=== PATIENT | female | born 1985 | race Caucasian/White ===

== ENCOUNTER 2017-07-11 11:21 | Emergency (ER) | payer OTHER ==
[2017-07-11 11:27] VITALS: BMI 26.6
--- NOTE | 2017-07-11 12:32 | PDOC ---
Attending Attestation - Resident Resident Name: Richard Waters - ED Attending Attestation I have performed the following: I have examined & evaluated the patient, The case was reviewed & discussed with the resident, I agree w/resident's findings & plan, Exceptions are as noted - HPI HPI: 07/11/17 12:50 31yo F no PMH p/w chest pain for 2 months. CP became worse over 2 days, L sided , radiating to back, pleuritic, non-positional. Denies trauma. Reports that she has not been lifting No tx tried. No OCPs or immobilization. LMP 06/08. Recent cold 1 week ago. - Physicial Exam PE: 07/11/17 12:56 GENERAL: Awake, alert, and fully oriented, in no acute distress HEAD: No signs of trauma EYES: PERRLA, EOMI, sclera anicteric, conjunctiva clear ENT: Auricles normal inspection, hearing grossly normal, nares patent, oropharynx clear without exudates. Moist mucosa NECK: Normal ROM, supple, no lymphadenopathy, JVD, or masses LUNGS: Breath sounds equal, clear to auscultation bilaterally. No wheezes, and no crackles HEART: Regular rate and rhythm, normal S1 and S2, no murmurs, rubs or gallops. + L sided ttp at 2nd intercostal space at the L sternal border. ABDOMEN: Soft, nontender, normoactive bowel sounds. No guarding, no rebound. No masses EXTREMITIES: Normal range of motion, no edema. No clubbing or cyanosis. No cords, erythema, or tenderness NEUROLOGICAL: Normal speech, cranial nerves intact, negative pronator drift, 5/ 5 strength in all 4 extremities, normal sensation to light touch in all 4 extremities, normal cerebellar exam, normal gait, normal reflexes and tone SKIN: Warm, Dry, normal turgor, no rashes or lesions noted. - Medical Decision Making 07/11/17 16:20 31yo F with no PMH p/w reproducible LSCP. Vitals unremerkable. EKG non ischemic. Likely MSK pain given reproducible nature with no risk factors and pt' s avoidance of heavy lifiting. WIll check troponin for ACS (pain has been present for 2 days) although unlikely history, and pt with no risk factors. Pt meets no PERC criteria, thus unlikely PE. -labs -UPT -cxr -toradol -likely DC Heart Score/ECG Review #1 07/11/17 13:02 Twelve-lead EKG was performed and reviewed by me. Normal sinus rhythm, rate 67. Normal axis. Incomplete right bundle branch block. No ST elevations. Isolated T- wave inversion in lead 3.
[2017-07-11 13:39] LABS: BASOPHIL 1.1 % (0-2.0); EOSINOPHIL 2.2 % (0-4.5); MCH 26.9 pg (25.7-33.7); MCHC 33.4 g/dl (32.0-36.0); MEAN CELL VOLUME 80.5 fl (80-96); MEAN PLT VOLUME 9.5 fl (7.5-11.1); NEUTROPHILS 52.2 % (42.8-82.8); PLATELET COUNT 310 K/MM3 (134-434); RDW 13.6 % (11.6-15.6); WHITE BLOOD COUNT 11.4 K/mm3 (4.0-10.0)
[2017-07-11 14:04] LABS: ALBUMIN 3.9 g/dl (3.4-5.0); ANION GAP 6 (8-16); BILIRUBIN,TOTAL 0.4 mg/dL (0.2-1.0); CALCIUM 8.7 mg/dL (8.5-10.1); CO2 28 mmol/L (21-32); CREATININE 0.6 mg/dL (0.55-1.02); GLUCOSE,RANDOM 87 mg/dL (74-106); SGPT/ALT 31 U/L (12-78); TOT PROT 7.7 g/dl (6.4-8.2)
[2017-07-11 14:07] LABS: ALK PHOS 82 U/L (45-117); TROPONIN I < 0.02 ng/ml (0.00-0.05)
[2017-07-11] MEDS ORDERED: KETOROLAC TROMETHAMINE 15 MG/ML VIAL IVPUSH ONE (14:29)
[2017-07-11] MEDS ORDERED: KETOROLAC TROMETHAMINE 15 MG/ML VIAL ONE (14:33)
[2017-07-11 14:47] LABS: CPK 199 IU/L (26-192); SGOT/AST 35 U/L (15-37)
--- NOTE | 2017-07-11 15:09 | PDOC ---
History of Present Illness - General Chief Complaint: Chest Pain Stated Complaint: CHEST PAIN Time Seen by Provider: 07/11/17 11:37 History Source: Patient Exam Limitations: No Limitations - History of Present Illness Initial Comments: 07/11/17 15:02 The patient is a 31F with no PMH who presents to the ED who presents to the ED with CP. The patient states that she's had 2 months of intermittent L sided chest pain which she describes as sharp and radiating to her back. Over the past 2 days, the pain has worsened and become constant, and is worse with deep breaths. She has not taken any medication for this pain. This has never happened before. She denies any long trips and using oral contraceptives. Soc: does not smoke, drink, or use recreational drugs LMP: Jun 08 Past History - Past Medical History Allergies/Adverse Reactions: Allergies Allergy/AdvReac Type Severity Reaction Status Date / Time No Known Allergies Allergy Verified 07/11/17 11:25 Home Medications: Ambulatory Orders NK [No Known Home Medication] 07/11/17 Other medical history: DENIES. - Surgical History Abdominal Surgery: Yes - Suicide/Smoking/Psychosocial Hx Smoking History: Never smoked Hx Alcohol Use: No Drug/Substance Use Hx: No Substance Use Type: None Review of Systems - Review of Systems Able to Perform ROS?: Yes Is the patient limited [place]ian proficient: No Constitutional: No: Chills, Fever HEENTM: No: Eye Pain, Nose Pain, Throat Pain Respiratory: Yes: Cough, Other (Recent URI) Cardiac (ROS): Yes: Chest Pain. No: Palpitations, Chest Tightness ABD/GI: No: Constipated, Nausea, Vomiting, Indigestion : No: Burning, Dysuria Musculoskeletal: No: Back Pain, Neck Pain Integumentary: No: Lesions, Lumps, Rash Neurological: No: Headache, Numbness, Tingling, Weakness *Physical Exam - Vital Signs Last Vital Signs Temp Pulse Resp BP Pulse Ox 98 F 71 18 110/75 99 07/11/17 11:25 07/11/17 11:25 07/11/17 11:25 07/11/17 11:25 07/11/17 11:25 - Physical Exam General Appearance: Yes: Nourished, Appropriately Dressed. No: Apparent Distress HEENT: positive: Normal Voice, Hearing Grossly Normal Respiratory/Chest: positive: Chest Tender, Lungs Clear, Normal Breath Sounds. negative: Respiratory Distress, Labored Respiration Cardiovascular: positive: Regular Rhythm, Regular Rate, S1, S2. negative: Diastolic Murmur, Systolic Murmur Gastrointestinal/Abdominal: positive: Flat, Soft. negative: Tender, Rebound, Tenderness Musculoskeletal: negative: CVA Tenderness, CVA Tenderness (R), CVA Tenderness (L ) Extremity: positive: Normal Inspection, Normal Range of Motion. negative: Coldness, Cyanosis, Calf Tenderness, Erythema Integumentary: positive: Dry, Warm. negative: Clammy, Diaphoresis Neurologic: positive: Fully Oriented, Alert, Normal Mood/Affect, Motor Strength 5/5 Heart Score/ECG Review - History History: Slightly suspicious - Electrocardiogram EKG: Normal - Age Age: </= 45 - Risk Factors Based on the list above the patient has:: No risk factors known - Troponin Troponin: </= normal limit - Score Heart Score - Total: 0 - ECG Impressions Comment:: 07/11/17 15:10 Rate 67 WI 130 QTc 407 Incomplete RBBB No old EKG for comparison ED Treatment Course - LABORATORY CBC & Chemistry Diagram: 07/11/17 13:30 07/11/17 13:30 - ADDITIONAL ORDERS Additional order review: Laboratory Results 07/11/17 07/11/17 13:30 13:29 Sodium 138 Potassium 5.0 Chloride 104 Carbon Dioxide 28 Anion Gap 6 L BUN 12 Creatinine 0.6 Creat Clearance w eGFR > 60 Random Glucose 87 Calcium 8.7 Total Bilirubin 0.4 AST 35 ALT 31 Alkaline Phosphatase 82 Creatine Kinase 199 H Troponin I < 0.02 Total Protein 7.7 Albumin 3.9 Serum , Qual Negative 07/11/17 13:30 RBC 5.23 H MCV 80.5 MCHC 33.4 RDW 13.6 MPV 9.5 Neutrophils % 52.2 Lymphocytes % 35.9 Monocytes % 8.6 Eosinophils % 2.2 Basophils % 1.1 - RADIOLOGY Radiology Studies Ordered: Category Date Time Status CHEST PA & LAT [RAD] Stat Radiology 07/11/17 11:56 Taken - Medications Given in the ED: ED Medications Discontinued Medications Generic Name Dose Route Start Last Admin Trade Name Freq PRN Reason Stop Dose Admin Ketorolac Tromethamine 15 mg 07/11/17 14:29 07/11/17 14:36 Toradol Injection - IVPUSH 07/11/17 14:30 15 mg ONCE ONE Administration Medical Decision Making - Medical Decision Making 07/11/17 15:11 The patient is 31F with no PMH presents with reproducible CP. Labs and vitals stable. Toradol given. Patient feels better. Knows to f/u with PCP for cardiology follow up. Will d/c patient. *DC/Admit/Observation/Transfer Diagnosis at time of Disposition: Costochondral pain - Discharge Dispostion Disposition: HOME Condition at time of disposition: Improved Admit: No - Patient Instructions Printed Discharge Instructions: DI for Atypical Chest Pain, DI for Chest Pain Additional Instructions: Please return to the ER if symptoms progress, worsen, or new symptoms arise. Please follow up with your primary care doctor in a week for cardiology referral. Please take motrin as needed for pain. Print Language: BENINESE
[2017-07-11 15:42] VITALS: BP 124/76; PULSE 82; TEMP 98.7
--- NOTE | 2017-07-12 11:46 | EKG ---
Test Reason : Blood Pressure : / mmHG Vent. Rate : 067 BPM Atrial Rate : 067 BPM P-R Int : 130 ms QRS Dur : 110 ms QT Int : 386 ms P-R-T Axes : 047 026 019 degrees QTc Int : 407 ms NORMAL SINUS RHYTHM INCOMPLETE RIGHT BUNDLE BRANCH BLOCK BORDERLINE ECG NO PREVIOUS ECGS AVAILABLE Confirmed by CHEPE CONCEPCION, LILLY ([id number]) on 07/12/2017 11:45:57 AM Referred By: Confirmed By:LILLY MO MD
== END 2017-07-11 15:42 | disposition home or self-care (01) ==
LOC: JER 11:21 → SUPCPDRO 11:21 → JER 15:42
PROC: 3E0333Z Introduction of Anti-inflammatory into Peripheral Vein, Percutaneous Approach (ICD-10-PCS; principal; 2017-07-11)
DX: M94.0 Chondrocostal junction syndrome [Tietze] (principal)
CPT/HCPCS: 36415; 71020-TC; 80053; 82550; 82553; 84484; 84703; 85025; 93005; 93010; 96374; 99283-25

== ENCOUNTER 2018-11-09 18:00 | Emergency (ER) | payer OTHER ==
--- NOTE | 2018-11-09 18:11 | PDOC ---
Rapid Medical Evaluation Time Seen by Provider: 11/09/18 18:10 Medical Evaluation: Allergies Allergy/AdvReac Type Severity Reaction Status Date / Time No Known Allergies Allergy Verified 07/11/17 11:25 11/09/18 18:10 I performed a brief in-person evaluation. Chief complaint: Chest pain, cough, fever Pertinent physical exam findings: +Rhinorrhea, clear lungs. I have ordered the following: None Patient will proceed to the ED for further evaluation. Discharge Disposition - Diagnosis Flu-like symptoms - Referrals - Patient Instructions - Post Discharge Activity
[2018-11-09 18:31] VITALS: BP 121/64; PULSE 98; TEMP 98.4; BMI 27.4
[2018-11-09] MEDS ORDERED: IBUPROFEN 600 MG TABLET (FP) PO ONE ×2 (18:48→18:54)
[2018-11-09] MEDS ORDERED: LORATADINE 10 MG TABLET PO ONE (18:48)
[2018-11-09] MEDS ORDERED: LORATADINE 10 MG TABLET ONE (18:54)
--- NOTE | 2018-11-09 18:55 | PDOC ---
History of Present Illness - General Chief Complaint: Pain Stated Complaint: CHEST PAIN Time Seen by Provider: 11/09/18 18:10 History Source: Patient Exam Limitations: No Limitations - History of Present Illness Initial Comments: 11/09/18 18:50 33 year old female with no significant medical or surgical history that presents with right sided headache and chest discomfort x 2 days. As per patient she is having sneezing and forceful coughing that causes her chest to hurt. States feeling a little short of breath also. Timing/Duration: reports: other (2 days') Severity: reports: moderate Possible Cause: Yes: no prior episodes Associated Symptoms: reports: cough, earache, fever/chills, headache Aspirin Received prior to arrival: Yes: no aspirin today ASA Contraindications(Core Measure): No: Allergy Beta Cole Contraindications(Core Measure): Yes: Not Prescribed Beta Cole Given by EMS(Core Measure): No Beta Cole Taken at Home(Core Measure): No Past History - Travel Traveled outside of the country in the last 30 days: No Close contact w/someone who was outside of country & ill: No - Past Medical History Allergies/Adverse Reactions: Allergies Allergy/AdvReac Type Severity Reaction Status Date / Time No Known Allergies Allergy Verified 11/09/18 18:10 Home Medications: Ambulatory Orders Ibuprofen 600 mg PO TID #20 tablet 11/09/18 Loratadine 10 mg PO DAILY #10 tab.rapdis 11/09/18 - Surgical History Abdominal Surgery: Yes - Suicide/Smoking/Psychosocial Hx Smoking History: Never smoked Hx Alcohol Use: No Drug/Substance Use Hx: No Substance Use Type: None Respiratory Specific PMHX - Complaint Specific PMHX Angina: No Bronchitis: No Pneumonia: No Pulmonary Embolus: No TB (Tuberculosis): No Review of Systems - Review of Systems Able to Perform ROS?: Yes Is the patient limited [place] proficient: No Constitutional: No: Chills, Fever, Malaise HEENTM: Yes: Nose Congestion. No: Throat Pain, Mouth Pain, Difficulty Swallowing Respiratory: Yes: Cough. No: Orthopnea, Shortness of Breath Cardiac (ROS): Yes: Chest Tightness. No: Edema, Lightheadedness, Palpitations ABD/GI: No: Abdominal Distended, Blood Streaked Bowels, Poor Appetite, Poor Fluid Intake, Indigestion : No: Hematuria, Incontinence Integumentary: No: Dryness, Erythema Neurological: Yes: Headache. No: Numbness, Paresthesia Psychiatric: No: Depression Endocrine: No: Intolerance to Heat *Physical Exam - Vital Signs Last Vital Signs Temp Pulse Resp BP Pulse Ox 98.4 F 98 H 18 121/64 99 11/09/18 18:29 11/09/18 18:29 11/09/18 18:29 11/09/18 18:29 11/09/18 18:29 - Physical Exam General Appearance: Yes: Nourished, Appropriately Dressed. No: Apparent Distress HEENT: positive: GRETEL, Pharynx Normal, Pharyngeal Erythema, Nasal Congestion. negative: Tonsillar Exudate, Rhinorrhea Neck: positive: Supple. negative: Lymphadenopathy (R), Lymphadenopathy (L) Respiratory/Chest: positive: Lungs Clear. 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 NML intact, Fully Oriented Moderate Sedation - Procedure Monitoring Vital Signs: Procedure Monitoring Vital Signs Temperature 98.4 F 11/09/18 18:29 Pulse Rate 98 H 11/09/18 18:29 Respiratory Rate 18 11/09/18 18:29 Blood Pressure 121/64 11/09/18 18:29 O2 Sat by Pulse Oximetry (%) 99 11/09/18 18:29 ED Treatment Course - ADDITIONAL ORDERS Additional order review: Laboratory Results 11/09/18 18:00 Urine HCG, Qual Negative - RADIOLOGY Radiology Studies Ordered: Category Date Time Status CHEST - PA [RAD] Stat Radiology 11/09/18 18:48 Ordered Medical Decision Making - Medical Decision Making 11/09/18 18:57 33 year old female with no significant medical or surgical history that presents with right sided headache and chest discomfort x 2 days Plan chest pain analgesia loratadine 11/09/18 19:17 wet read chest xray : negative *DC/Admit/Observation/Transfer Diagnosis at time of Disposition: Flu-like symptoms - Discharge Dispostion Disposition: HOME Condition at time of disposition: Good Decision to Admit order: No - Prescriptions Prescriptions: Ibuprofen 600 mg PO TID #20 tablet Loratadine 10 mg PO DAILY #10 tab.rapdis - Referrals Schedule a call back: final chest xray - Patient Instructions Printed Discharge Instructions: Common Cold Additional Instructions: Drink plenty fluids and rest May take ibuprofen and acetaminophen for headache and bodyaches Return to ed for worsening symptoms Call primary physician for appointment - Post Discharge Activity Forms/Work/School Notes: Back to Work
== END 2018-11-09 19:29 | disposition home or self-care (01) ==
LOC: JERFT 18:00
DX: J11.1 Influenza due to unidentified influenza virus with other respiratory manifestations (principal)
CPT/HCPCS: 71045-TC-FY; 84703; 99281-25

== ENCOUNTER 2018-11-11 13:29 | Emergency (ER) | payer OTHER ==
[2018-11-11 14:15] VITALS: BP 103/68; PULSE 98; TEMP 98.2; BMI 27.4
--- NOTE | 2018-11-11 15:12 | PDOC ---
History of Present Illness - General Chief Complaint: Cold Symptoms Stated Complaint: HEADACHES / CONGESTION Time Seen by Provider: 11/11/18 14:19 History Source: Patient Exam Limitations: No Limitations (headache with right facial pain) Past History - Travel Traveled outside of the country in the last 30 days: No Close contact w/someone who was outside of country & ill: No - Past Medical History Allergies/Adverse Reactions: Allergies Allergy/AdvReac Type Severity Reaction Status Date / Time No Known Allergies Allergy Verified 11/11/18 14:12 Home Medications: Ambulatory Orders Ibuprofen 600 mg PO TID #20 tablet 11/09/18 Loratadine 10 mg PO DAILY #10 tab.rapdis 11/09/18 Azithromycin [Zithromax] 250 mg PO DAILY 5 Days #6 tablet 11/11/18 Fluticasone Propionate [Flonase Allergy Relief] 9.9 ml NS ACDIN 7 Days #1 spray.susp 11/11/18 - Surgical History Abdominal Surgery: Yes - Suicide/Smoking/Psychosocial Hx Smoking History: Unknown if ever smoked Hx Alcohol Use: No Drug/Substance Use Hx: No Substance Use Type: None Review of Systems - Review of Systems Is the patient limited Venezuelan proficient: No Constitutional: No: Chills, Fever HEENTM: Yes: Nose Congestion. No: Blurred Vision, Recent change in vision, Double Vision Respiratory: No: Orthopnea, Shortness of Breath Cardiac (ROS): No: Chest Pain ABD/GI: No: Nausea, Vomiting Neurological: Yes: Headache. No: Numbness, Paresthesia, Seizure, Tingling, Tremors, Weakness, Unsteady Gait, Dizziness *Physical Exam - Vital Signs Last Vital Signs Temp Pulse Resp BP Pulse Ox 98.2 F 98 H 18 103/68 97 11/11/18 14:14 11/11/18 14:14 11/11/18 14:14 11/11/18 14:14 11/11/18 14:14 - Physical Exam General Appearance: Yes: Nourished HEENT: positive: TMs Normal, Rhinorrhea, Sinus Tenderness (right frontal and maxillary sinus tenderness, + buggy nasal turbinates) Respiratory/Chest: positive: Lungs Clear, Normal Breath Sounds Cardiovascular: positive: Regular Rhythm, Regular Rate, S1, S2 Extremity: positive: Normal Capillary Refill 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 Patient was seen in the emergency room 2 days ago was treated for upper respiratory infection she reports she's taken loratadine was still pain examination consistent with sinusitis Rx for abx nasal lavages nsaids for pain 11/11/18 18:52 *DC/Admit/Observation/Transfer Diagnosis at time of Disposition: Sinusitis Qualifiers: Sinusitis location: frontal Chronicity: acute Recurrence: not specified as recurrent Qualified Code(s): J01.10 - Acute frontal sinusitis, unspecified - Discharge Dispostion Disposition: HOME Condition at time of disposition: Stable Decision to Admit order: No - Prescriptions Prescriptions: Azithromycin [Zithromax] 250 mg PO DAILY 5 Days #6 tablet Fluticasone Propionate [Flonase Allergy Relief] 9.9 ml NS ACDIN 7 Days #1 spray.susp - Referrals Referrals: Lj Velazquez MD [Primary Care Provider] - - Patient Instructions Printed Discharge Instructions: Sinusitis Additional Instructions: I discussed the physical exam findings, ancillary test results and final diagnoses with the patient. I answered all of the patient's questions. The patient was satisfied with the care received and felt comfortable with the discharge plan and treatment plan. The patient will call their primary care physician within 24 hours to arrange follow-up and will return to the Emergency Department with any new, persistant or worsening symptoms. - Post Discharge Activity
== END 2018-11-11 15:45 | disposition home or self-care (01) ==
LOC: JERFT 13:29
DX: J01.10 Acute frontal sinusitis, unspecified (principal)
CPT/HCPCS: 99281-25

== ENCOUNTER 2019-02-17 14:45 | Emergency (ER) | payer OTHER | END 2019-02-17 18:24 | disposition home or self-care (01) | LOC: JER 14:45 ==

== ENCOUNTER 2019-07-17 09:39 | Emergency (ER) | payer OTHER ==
[2019-07-17 09:45] VITALS: BP 105/68; PULSE 84; TEMP 97.9; BMI 28.8
[2019-07-17] MEDS ORDERED: IBUPROFEN 600 MG TABLET (FP) PO ONE ×2 (10:04→10:07)
--- NOTE | 2019-07-17 10:17 | PDOC ---
History of Present Illness - General Chief Complaint: Back Pain Stated Complaint: SHARP PAIN IN BACK Time Seen by Provider: 07/17/19 09:54 History Source: Patient Exam Limitations: No Limitations Past History - Past Medical History Allergies/Adverse Reactions: Allergies Allergy/AdvReac Type Severity Reaction Status Date / Time No Known Allergies Allergy Verified 07/17/19 09:45 Home Medications: Ambulatory Orders Ciprofloxacin [Cipro -] 500 mg PO Q12H 5 Days #10 tablet 02/17/19 metroNIDAZOLE [Flagyl -] 500 mg PO DAILY 7 Days #14 tablet 02/17/19 Ciprofloxacin [Cipro (Restricted To Id)] 500 mg PO Q12H #10 tablet 02/21/19 metroNIDAZOLE [Flagyl -] 500 mg PO BID #14 tablet 02/21/19 Cyclobenzaprine HCl [Flexeril 10 mg] 10 mg PO TID PRN #30 tablet 07/17/19 COPD: No - Surgical History Abdominal Surgery: Yes - Psycho Social/Smoking Cessation Hx Smoking History: Never smoked Information on smoking cessation initiated: No Hx Alcohol Use: No Drug/Substance Use Hx: No Substance Use Type: None *Physical Exam - Vital Signs Last Vital Signs Temp Pulse Resp BP Pulse Ox 97.9 F 84 17 105/68 100 07/17/19 09:43 07/17/19 09:43 07/17/19 09:43 07/17/19 09:43 07/17/19 09:43 - Physical Exam General Appearance: No: Apparent Distress Respiratory/Chest: positive: Lungs Clear, Normal Breath Sounds. negative: Respiratory Distress Cardiovascular: positive: Regular Rhythm, Regular Rate, S1, S2. negative: Murmur Gastrointestinal/Abdominal: positive: Normal Bowel Sounds, Soft. negative: Tender, Distended, Guarding, Rebound Musculoskeletal: positive: Muscle Spasm (along L thoracic paraspinal muscles). negative: CVA Tenderness (R), CVA Tenderness (L), Vertebral Tenderness Extremity: positive: Normal Inspection, Normal Range of Motion Neurologic: positive: Alert, Normal Mood/Affect, Motor Strength 5/5 ED Treatment Course - Medications Given in the ED: ED Medications Discontinued Medications Generic Name Dose Route Start Last Admin Trade Name Freq PRN Reason Stop Dose Admin Ibuprofen 600 mg 07/17/19 10:04 07/17/19 10:09 Motrin - PO 07/17/19 10:05 600 mg ONCE ONE Administration Medical Decision Making - Medical Decision Making 33 y/o F with no sig pmh presents with L mid back pain worse with movement of body from today. Denies trauma, heavy lifting. Denies fever, neck pain, sob, cp , abd pain, n/v, shoulder pain, numbness/tingling/weakness of extremities, urinary symptoms. Back spasm based on exam No concern for PE, PNA, kidney stones or other anomaly Given motrin unable to take muscle relaxer as driving home 07/17/19 10:14 Discharge - Discharge Information Problems reviewed: Yes Clinical Impression/Diagnosis: Back spasm Condition: Stable Disposition: HOME - Admission No - Additional Discharge Information Prescriptions: Cyclobenzaprine HCl [Flexeril 10 mg] 10 mg PO TID PRN #30 tablet PRN Reason: Muscle Spasms Prescription Drug Monitoring Program (I-STOP) results: I-STOP not reviewed - Follow up/Referral - Patient Discharge Instructions Patient Printed Discharge Instructions: DI for Back Spasm Additional Instructions: Thank you for choosing [facility]. It was a pleasure taking care of you. You may take Motrin 600 mg every 6 hours by mouth as needed for mild to moderate pain. Take Motrin with food. Take Flexeril as needed for muscle spasms. This medication can also make you drowsy so please be cautious with driving or performing heavy physical work. Warm compresses and epsom salt baths may also help. Return to the Emergency Department if your symptoms worsen or persist, you have fever, shortness of breath, chest pain, severe abdominal pain, vomiting, dizziness, weakness of extremities, unable to walk, unable to control bowel or bladder movements or other concerning symptoms. - Post Discharge Activity
== END 2019-07-17 10:22 | disposition home or self-care (01) ==
LOC: JERFT 09:39
DX: R25.2 Cramp and spasm (principal)
CPT/HCPCS: 99281-25

== ENCOUNTER 2020-04-26 18:05 | Emergency (ER) | payer OTHER ==
--- NOTE | 2020-04-26 18:08 | PDOC ---
Rapid Medical Evaluation Chief Complaint: Pain Time Seen by Provider: 04/26/20 18:07 Medical Evaluation: Allergies Allergy/AdvReac Type Severity Reaction Status Date / Time No Known Allergies Allergy Verified 07/17/19 09:45 04/26/20 18:07 I have performed a brief in-person evaluation of this patient. CC: lower abdominal pain x today. 19wks gestation. LMP-12/04/19 PE: Gravid abdomen Orders: labs, urine, sono Patient will proceed to ED for further evaluation. 04/26/20 18:08 Discharge Disposition - Diagnosis Abdominal pain affecting - Referrals - Patient Instructions - Post Discharge Activity
[2020-04-26 18:10] VITALS: BP 120/77; PULSE 94; TEMP 98; BMI 31.8
[2020-04-26 19:13] LABS: BASO % 0.8 % (0-2.0); EOS % 2.4 % (0-4.5); HEMOGLOBIN 12.2 GM/dL (10.7-15.3); LYMPH % 25.4 % (8-40); MCH 28.2 pg (25.7-33.7); MCHC 33.8 g/dl (32.0-36.0); MEAN CELL VOLUME 83.3 fl (80-96); MEAN PLT VOLUME 10.1 fl (7.5-11.1); MONO % 5.2 % (3.8-10.2); NEUT % 66.2 % (42.8-82.8); PLATELET COUNT 256 K/MM3 (134-434); RBC 4.32 M/mm3 (3.60-5.2); RDW 12.7 % (11.6-15.6); WHITE BLOOD COUNT 16.2 K/mm3 (4.0-10.0)
[2020-04-26] MEDS ORDERED: ACETAMINOPHEN 500 MG TABLET (FP) ONE (19:14)
[2020-04-26] MEDS ORDERED: ACETAMINOPHEN 500 MG TABLET (FP) PO ONE (19:17)
--- NOTE | 2020-04-26 19:19 | PDOC ---
History of Present Illness - General Chief Complaint: Pain Stated Complaint: ABDOMINAL PAIN Time Seen by Provider: 04/26/20 18:07 History Source: Patient - History of Present Illness Timing/Duration: reports: constant Quality: reports: mild Abdominal Pain Onset Location: reports: other (lower abd) Pain Radiation: reports: no radiation Past History - Medical History Allergies/Adverse Reactions: Allergies Allergy/AdvReac Type Severity Reaction Status Date / Time No Known Allergies Allergy Verified 04/26/20 18:10 Home Medications: Ambulatory Orders Pnv No.95/Ferrous Fum/Folic AC [ Caplet] 1 each PO 02/09/20 COPD: No - Surgical History Abdominal Surgery: Yes - Psycho-Social/Smoking History Smoking History: Never smoked Have you smoked in the past 12 months: No - Substance Abuse Hx (Audit-C & DAST Scrn) How often the patient has a drink containing alcohol: Never Score: In Men: 4 or > Positive; In Women: 3 or > Positive: 0 Screen Result (Pos requires Nsg. Audit-10AR): Negative Review of Systems - Review of Systems Constitutional: No: Chills, Fever ABD/GI: Yes: Abdominal cramping. No: Constipated, Diarrhea, Nausea, Vomiting : No: Dysuria, Flank Pain, Hematuria *Physical Exam - Vital Signs Last Vital Signs Temp Pulse Resp BP Pulse Ox 98 F 94 H 18 120/77 99 04/26/20 18:07 04/26/20 18:07 04/26/20 18:07 04/26/20 18:07 04/26/20 18:07 - Physical Exam 04/26/20 19:17 well appearing, sitting on stretcher talking on cell phone General Appearance: Yes: Appropriately Dressed. No: Apparent Distress HEENT: positive: Normal Voice Neck: positive: Supple Gastrointestinal/Abdominal: positive: Tender (minimal ttp to mid suprapubic, NT over mcburneys), Soft Musculoskeletal: negative: CVA Tenderness Integumentary: positive: Dry, Warm Neurologic: positive: Fully Oriented, Alert, Normal Mood/Affect ED Treatment Course - LABORATORY CBC & Chemistry Diagram: 04/26/20 18:45 04/26/20 18:39 Medical Decision Making - Medical Decision Making 04/26/20 19:15 34 yo F, , ~ 19 weeks by dates w/ US last week w/ no isues w/ preg so far, here w/ lower ab dpain that is mild "but different from my usual pain" per pt. No vag bleed, dysuria, n/v/f/ see exam Abd pain in 2nd trimester S/p US last week w/ no issues w/ preg so far No vag bleed or dysuria Well maribell and stable w/ no sig ttp on abd exam -tylenol -ua -no need for rpt US today -anticipate dc w/ [facility] f/u 04/26/20 19:57 WBC 16, m/l leukocytosis of . Pt now reports pain has since resolved and requesting discharge, abd non-tender on rpt exam. No concern for pre- clampsia given exam and lab findings and <20 weeks gestation. Pt advised to stay and wait for her ua results which pt now agrees to do 04/26/20 20:13 UA wnl. Pt stable for dc to f/u with [facility]. To return as needed Discharge - Discharge Information Problems reviewed: Yes Clinical Impression/Diagnosis: Abdominal pain affecting Condition: Improved Disposition: HOME - Follow up/Referral - Patient Discharge Instructions Patient Printed Discharge Instructions: Managing Symptoms of Additional Instructions: Your labs and urine was normal Take tylenol as needed for pain and follow up with your [facility] - Post Discharge Activity
[2020-04-26 19:53] LABS: ALBUMIN 3.1 g/dl (3.4-5.0); BILIRUBIN,TOTAL 0.2 mg/dL (0.2-1); BLOOD UREA NITROGEN 11.1 mg/dL (7-18); CALCIUM 8.8 mg/dL (8.5-10.1); CREATININE 0.7 mg/dL (0.55-1.3); POTASSIUM 4.6 mmol/L (3.5-5.1); TOT PROT 6.5 g/dl (6.4-8.2)
[2020-04-26 20:04] LABS: PH,URINE 5.5 (5.0-8.0); URINE APPEARANCE CLEAR; URINE BILIRUBIN NEGATIVE (NEGATIVE); URINE COLOR YELLOW; URINE GLUCOSE (UA) NEGATIVE (NEGATIVE); URINE KETONE NEGATIVE (NEGATIVE); URINE LEUK ESTERASE NEGATIVE (NEGATIVE); URINE NITRITE NEGATIVE (NEGATIVE); URINE PROTEIN NEGATIVE (NEGATIVE)
== END 2020-04-26 20:15 | disposition home or self-care (01) ==
LOC: JER 18:05
DX: O26.92 Pregnancy related conditions, unspecified, second trimester (principal)
CPT/HCPCS: 36415; 80053; 81003; 85025; 87086; 99284-25